=== PATIENT | female | born 1960 | race Hispanic/Latino ===

== ENCOUNTER 2020-03-21 20:37 | Inpatient (IN) | payer OTHER ==
[~2020-03-21] VITALS: Ht 157.5 cm; Wt 88.2 kg
[2020-03-21 21:53] LABS: BASOPHILS % (AUTO) 0.4 % (0.0-5.0); HEMATOCRIT 36.7 % (36-48); LYMPHOCYTES % (AUTO) 21.9 % (21.0-51.0); MEAN CORPUSCULAR HEMOGLOBIN 28.4 pg (27.0-33.0); MEAN CORPUSCULAR HGB CONC 31.3 g/dL (32.0-36.0); MEAN CORPUSCULAR VOLUME 90.6 fL (79-99); MONOCYTES % (AUTO) 5.4 % (3.0-13.0); PLATELET COUNT (AUTO) 478 K/uL (130-400); RED BLOOD CELL COUNT(AUTO) 4.05 MIL/uL (4.00-5.50); RED CELL DISTRIBUTION WIDTH 22.8 % (11.0-15.5)
[2020-03-21 21:53] LABS: APPEARANCE,URINE CLOUDY (CLEAR); BILIRUBIN,URINE LARGE (NEGATIVE); COLOR,URINE YELLOW (YELLOW); GLUCOSE, URINE (UA) 100 mg/dL (NEGATIVE); KETONES,URINE 5 mg/dL (NEGATIVE); LEUKOCYTE ESTERASE ,URINE MODERATE (NEGATIVE); NITRATE,URINE POSITIVE (NEGATIVE); OCCULT BLOOD,URINE SMALL (NEGATIVE); PROTEIN,URINE >=300 mg/dL (NEGATIVE)
[2020-03-21 22:01] LABS: BACTERIA,URINE Few /HPF (None Seen)
[2020-03-21 22:02] LABS: SQUAMOUS EPITHELIAL CELL,UR Rare /HPF (0-2); TRANSITIONAL EPI CELLS,URINE Few /HPF (None Seen)
[2020-03-21 22:06] LABS: CREATININE 2.5 mg/dL (0.5-1.5); POTASSIUM 4.5 mmol/L (3.5-5.1)
[2020-03-21 22:10] LABS: ALBUMIN 1.4 g/dL (3.5-5.0); BILIRUBIN,TOTAL 6.7 mg/dL (0.2-1.0); TOTAL PROTEIN, SERUM 7.4 g/dL (6.0-8.3)
[2020-03-21] MEDS ORDERED: ONDANSETRON HCL 4 MG/2 ML VIAL ONE (22:35)
[2020-03-21] MEDS ORDERED: MORPHINE SULFATE 4 MG/1ML SYG ONE (22:35)
[2020-03-21] MEDS ORDERED: SODIUM CHLORIDE 0.9% 50 ML IV ONE (23:13)
[2020-03-21] MEDS ORDERED: CEFTRIAXONE SODIUM 1 GM ONE (23:13)
[2020-03-22] MEDS ORDERED: GLUCAGON 1MG KIT 1 MG ML IM PRN (00:30)
[2020-03-22] MEDS ORDERED: DEXTROSE 50%-WATER 50 ML DISP.SYRIN IV PRN (00:30)
[2020-03-22] MEDS ORDERED: SODIUM CHLORIDE 0.9% 500ML 500 ML IV SCH (00:45)
[2020-03-22] MEDS ORDERED: ONDANSETRON HCL 4 MG/2 ML VIAL IV PRN (00:45)
[2020-03-22] MEDS ORDERED: NITROGLYCERIN 0.4 MG SL TAB SL PRN (00:45)
[2020-03-22 01:23] LABS: CRP QUANTITATIVE 65.5 mg/L (0.00-9.0); INR 1.45 (0.85-1.15); PARTIAL THROMBOPLASTIN TIME 29.4 SEC (26.3-35.5); PROTHROMBIN TIME 15.4 SEC (9.6-11.6)
[2020-03-22 01:25] LABS: HEMOGLOBIN A1C 5.5 % (4.0-6.0)
[2020-03-22 01:29] LABS: AMMONIA 44 umol/L (11-32); CREATINE KINASE, TOTAL 47 U/L (21-232); MYOGLOBIN 91 ng/mL (10-92); TROPONIN I < 0.04 ng/mL (0.00-0.06)
[2020-03-22] MEDS ORDERED: LACTULOSE 20 GM/30 ML UDCUP PO SCH (02:00)
[2020-03-22] MEDS ORDERED: MAGNESIUM 2GM PREMIX 50ML 50 ML IV SCH (02:00)
[2020-03-22] MEDS ORDERED: LACTULOSE 20 GM/30 ML UDCUP ONE (03:54)
[2020-03-22] MEDS ORDERED: MAGNESIUM 2GM PREMIX 50ML 50 ML IV ONE (04:07)
[2020-03-22 04:30] VITALS: BP 158/71
[2020-03-22 05:18] LABS: HEMATOCRIT 34.8 % (36-48); MEAN CORPUSCULAR HEMOGLOBIN 27.4 pg (27.0-33.0); MEAN CORPUSCULAR VOLUME 88.3 fL (79-99); PLATELET COUNT (AUTO) 486 K/uL (130-400); RED BLOOD CELL COUNT(AUTO) 3.94 MIL/uL (4.00-5.50); RED CELL DISTRIBUTION WIDTH 22.6 % (11.0-15.5)
[2020-03-22 05:29] LABS: ALBUMIN 1.4 g/dL (3.5-5.0); BILIRUBIN,TOTAL 5.9 mg/dL (0.2-1.0); CREATININE 2.3 mg/dL (0.5-1.5); MAGNESIUM 1.8 mg/dL (1.80-2.40); PHOSPHORUS 2.9 mg/dL (2.5-4.9); TOTAL PROTEIN, SERUM 6.8 g/dL (6.0-8.3)
[2020-03-22 05:40] LABS: BAND NEUTROPHILS % (MANUAL) 1 % (0-2); BASOPHILS % (MANUAL) 1 % (0-2); LYMPHOCYTES % (MANUAL) 38 % (22-44); MAN.DIFF COMMENT-IMPRESSION MANUAL DIFFERENTIAL; MONOCYTES % (MANUAL) 2 % (2-9); SEGMENTED NEUTROPHILS % 58 % (40-70)
[2020-03-22 06:14] LABS: POTASSIUM 2.8 mmol/L (3.5-5.1)
[2020-03-22] MEDS: LACTULOSE 20 GM/30 ML UDCUP PO SCH ×3 (07:15→17:03)
[2020-03-22] MEDS: INSULIN HUMULIN R 100 UNIT/ML 3ML SQ SCH ×4 (07:30→21:00)
[2020-03-22] MEDS ORDERED: DEXTROSE 5%-LACTATED RINGERS 1,000 ML IV SCH (07:30)
[2020-03-22] MEDS ORDERED: PAMIDRONATE DISODIUM 90MG VIAL 90 MG in SODIUM CHLORIDE 0.9% 1000ML 1,000 ML IV SCH (07:30)
[2020-03-22] MEDS ORDERED: POTASSIUM CHLORIDE 10MEQ/100ML 100 ML IV PRN ×2 (07:45)
[2020-03-22] MEDS ORDERED: POTASSIUM CHLORIDE 10% ELIXIR 20 MEQ/15 ML UDCUP PO PRN (07:45)
[2020-03-22] MEDS ORDERED: LIDOCAINE HCL-MPF 1% 2ML VIAL IV PRN ×2 (07:45)
[2020-03-22] MEDS ORDERED: ALBUMIN (HUMAN) 25% 200 ML IV SCH (08:15)
[2020-03-22 08:22] LABS: INR 1.41 (0.85-1.15); PARTIAL THROMBOPLASTIN TIME 32.7 SEC (26.3-35.5)
[2020-03-22 08:30] VITALS: BP 120/52
[2020-03-22] MEDS ORDERED: POTASSIUM CHLORIDE 20MEQ/100ML 100 ML IV ONE (08:58)
[2020-03-22] MEDS: FAMOTIDINE/PF 20 MG/2 ML VIAL IV SCH (09:09)
[2020-03-22] MEDS: CEFTRIAXONE SODIUM 1 GM IVP SCH ×2 (09:10→21:26)
--- NOTE | 2020-03-22 09:30 | NUR ---
RE: PARACENTESIS PATIENT SCHEDULED FOR PARACENTESIS. COVID-19 RAPID TEST NEGATIVE 03/22/20 AND PENDING COVID-19 PCR RESULTS. PROCEDURE RESCHUEDULED UNTIL RESULTS GET BACK. Amy SANCHEZ RN NOTIFIED OR PROCEDURE OUTCOME.
[2020-03-22 11:30] VITALS: BP 129/67
[2020-03-22 13:23] LABS: CREATININE,URINE RANDOM 284 mg/dL (30-135); SODIUM,URINE RANDOM 16 mmol/l (40-220)
--- NOTE | 2020-03-22 16:54 | NUR ---
SHADI NOTE/IA MET WITH PATIENT IN ROOM. PER PATIENT, LIVES WITH DAUGHTER IN LAW AND DAUGHTER IN LAWS CHILDREN, IS DANIEL INDEPENDENT WITH ADLS, HAS USE OF WHEELCHAIR, AND FEELS SAFE TO RETURN HOME ONCE DISCHARGED. Addendum: 03/22/20 at 1655 by CHADWICK CARBONE RN CM Amended: Links added.
[2020-03-22 17:19] VITALS: BP 114/61
[2020-03-22 17:36] LABS: MAGNESIUM 2.4 mg/dL (1.80-2.40); POTASSIUM 3.2 mmol/L (3.5-5.1)
[2020-03-22 19:30] VITALS: BP 133/71
[2020-03-22 23:43] VITALS: BP 143/67
[2020-03-23] MEDS: LACTULOSE 20 GM/30 ML UDCUP PO SCH ×4 (01:15→18:10)
[2020-03-23 03:23] VITALS: BP 126/59
[2020-03-23 05:32] LABS: BASOPHILS % (AUTO) 0.2 % (0.0-5.0); EOSINOPHILS % (AUTO) 1.7 % (0.0-8.0); LYMPHOCYTES % (AUTO) 19.5 % (21.0-51.0); MEAN CORPUSCULAR HEMOGLOBIN 27.9 pg (27.0-33.0); MEAN CORPUSCULAR HGB CONC 31.7 g/dL (32.0-36.0); MEAN CORPUSCULAR VOLUME 87.9 fL (79-99); MONOCYTES % (AUTO) 6.9 % (3.0-13.0); NEUTROPHILS % (AUTO) 71.2 % (40.0-77.0); PLATELET COUNT (AUTO) 455 K/uL (130-400); RED BLOOD CELL COUNT(AUTO) 3.98 MIL/uL (4.00-5.50); RED CELL DISTRIBUTION WIDTH 23.2 % (11.0-15.5); WHITE BLOOD COUNT (AUTO) 10.9 K/uL (4.8-10.8)
[2020-03-23 05:34] LABS: ALBUMIN 1.2 g/dL (3.5-5.0); BILIRUBIN,TOTAL 4.8 mg/dL (0.2-1.0); CREATININE 2.5 mg/dL (0.5-1.5); POTASSIUM 3.1 mmol/L (3.5-5.1); TOTAL PROTEIN, SERUM 6.6 g/dL (6.0-8.3)
[2020-03-23] MEDS: INSULIN HUMULIN R 100 UNIT/ML 3ML SQ SCH ×4 (05:45→19:18)
[2020-03-23] MEDS: POTASSIUM CHLORIDE 20 MEQ ERTAB PO PRN (06:13)
[2020-03-23] MEDS: FAMOTIDINE/PF 20 MG/2 ML VIAL IV SCH (07:16)
[2020-03-23] MEDS: CEFTRIAXONE SODIUM 1 GM IVP SCH ×2 (07:16→19:14)
[2020-03-23 08:00] VITALS: BP 123/66
--- NOTE | 2020-03-23 08:20 | NUR ---
ASSESSMENT PT IS AAOX3 DENIES CP DENIES SOB DENIES NV NO COMPLAINTS, RESTING IN BED. TOLERATED MEAL AND MEDS, CALL LIGHT WITHIN REACH.
[2020-03-23 12:00] VITALS: BP 143/108
[2020-03-23] MEDS: ACETAMINOPHEN-CODEINE 300/30MG TAB PO PRN ×2 (12:06→18:09)
--- NOTE | 2020-03-23 12:40 | NUR ---
DOWN TO RADIOLOGY FOR PARACENTESIS, VIA WC WITH TECH.
--- NOTE | 2020-03-23 13:00 | NUR ---
U/S GUIDED PARACENTESIS PROCEDURE PERFORMED BY DR. KUMAR. PUNCTURE SITE RIGHT LOWER QUADRANT AND PATIENT TOLERATED PROCEDURE WELL. TOTAL REMOVED 3.5 LITERS OF CLOUDY YELLOW ASCITES FLUID. END OF PROCEDURE AT 1325. SPECIMEN COLLECTED AND SENT TO LAB. CATHETER REMOVED AND DRESSING APPLIED. NO BLEEDING NOTED. REPORT GIVEN TO BILLY LYONS AND PATIENT TRANSPORTED TO 4TH FLOOR RM 430 VIA W/C. PT STABLE, AAO X 3 WITH NO C/O PAIN.
--- NOTE | 2020-03-23 14:00 | NUR ---
RETURNED TO ROOM 430 PT IS AAOX3 DENIES CP DENIES SOB DENIES NV. PER RADIOLOGY NURSE ISAAC RN, NO ALBUMIN ORDERED PER RADIOLOGY MD.
--- NOTE | 2020-03-23 15:00 | NUR ---
OK FOR PT TO HAVE FOOD FROM OUTSIDE PER DR COMBS
[2020-03-23 15:39] LABS: ALBUMIN,BODY FLUID 0.1 g/dL
[2020-03-23 16:00] VITALS: BP 127/68
[2020-03-23 16:28] LABS: APPEARANCE BODY FLUID CLEAR (CLEAR); COLOR,BODY FLUID YELLOW (LT YELLOW); SPECIMENTYPE,BODY FLUID ASCITES; TOTAL VOLUME,BODY FLUID 3500 mL
[2020-03-23 16:29] LABS: BODY FLUID WBC 73 /cu. mm.
[2020-03-23 16:32] LABS: BODY FLUID RBC 92 /cu. mm.
[2020-03-23 17:02] LABS: BF LYMPHOCYTE 39 %
[2020-03-23 20:19] VITALS: BP 147/64
[2020-03-23] MEDS: FUROSEMIDE 20 MG TABLET PO SCH (21:29)
[2020-03-23 23:54] VITALS: BP 119/60
[2020-03-24] VITALS (7 sets, daily range): BP systolic 120–154; BP diastolic 58–77
[2020-03-24] MEDS: LACTULOSE 20 GM/30 ML UDCUP PO SCH ×4 (01:03→19:15)
[2020-03-24] MEDS: ACETAMINOPHEN-CODEINE 300/30MG TAB PO PRN ×2 (03:07→16:18)
[2020-03-24] MEDS: INSULIN HUMULIN R 100 UNIT/ML 3ML SQ SCH ×4 (05:34→20:44)
[2020-03-24 05:53] LABS: BASOPHILS % (AUTO) 0.2 % (0.0-5.0); EOSINOPHILS % (AUTO) 0.4 % (0.0-8.0); LYMPHOCYTES % (AUTO) 10.7 % (21.0-51.0); MEAN CORPUSCULAR HGB CONC 31.7 g/dL (32.0-36.0); MEAN CORPUSCULAR VOLUME 88.2 fL (79-99); MONOCYTES % (AUTO) 5.5 % (3.0-13.0); NEUTROPHILS % (AUTO) 82.7 % (40.0-77.0); NUCLEATED RED BLOOD CELLS 0.1 % (0.0-0.19); PLATELET COUNT (AUTO) 461 K/uL (130-400); RED BLOOD CELL COUNT(AUTO) 3.97 MIL/uL (4.00-5.50); RED CELL DISTRIBUTION WIDTH 23.3 % (11.0-15.5)
[2020-03-24 06:09] LABS: ALBUMIN 1.2 g/dL (3.5-5.0); BILIRUBIN,TOTAL 4.9 mg/dL (0.2-1.0); CREATININE 2.1 mg/dL (0.5-1.5); POTASSIUM 3.2 mmol/L (3.5-5.1); TOTAL PROTEIN, SERUM 6.3 g/dL (6.0-8.3)
[2020-03-24] MEDS: POTASSIUM CHLORIDE 20 MEQ ERTAB PO PRN ×3 (06:16→07:43)
--- NOTE | 2020-03-24 07:20 | NUR ---
ASSESSMENT PT IS AAOX3 DENIES CP DENIES SOB DENIES NV, NO COMPLAINTS AT THIS TIME. RESTING SITTING UPRIGHT IN BED HOB UP AT 30 DEGREES. CALL LIGHT WITHIN REACH.
[2020-03-24] MEDS: CEFTRIAXONE SODIUM 1 GM IVP SCH ×2 (07:41→19:27)
[2020-03-24] MEDS: FAMOTIDINE/PF 20 MG/2 ML VIAL IV SCH (07:41)
[2020-03-24] MEDS: SPIRONOLACTONE 25 MG TAB PO SCH ×2 (07:42→19:27)
[2020-03-24] MEDS: FUROSEMIDE 20 MG TABLET PO SCH ×2 (07:42→19:27)
--- NOTE | 2020-03-24 13:00 | NUR ---
Hospice Referral SW visited pt's room, pt's son at bedside. Pt. requested that this worker speak with her dtr. Jennie Von/[phone]. Phone call to Jennie to discuss pt's condition and plan of care; Jennie requested this worker speak w/Althea Edward pts dtr in law stating she can better understand hospice. SW spoke with Althea pt's dtr in law who was able to verbalize an understanding of explanation from physicians as to condition and prognosis of pt. This worker provided education and philosophy on hospice, comfort versus curative care; dtr in law voiced an understanding. SW explained that if this option is chosen by family, SW would request [facility] from numerous agencies as pt. is non funded; dtr in law voiced an understanding. Dtr. in law stated that she would speak with her spouse and pt's other three children this evening about home hospice and requested that this worker contact her in the morning. SW will continue to follow.
[2020-03-24] MEDS: METRONIDAZOLE 500MG/100ML BAG 100 ML IVPB SCH ×2 (13:10→19:34)
--- NOTE | 2020-03-24 14:45 | NUR ---
UP TO SHOWER WITH NURSE AIDE ASSIST, TOLERATED WELL. SITTING UP IN CHAIR, SON AT BEDSIDE.
--- NOTE | 2020-03-24 15:05 | NUR ---
GLUCOSE LEVEL 57 PT IS AAOX3 NO COMPLAINTS, DRINKING SODA AND EATING A CANDY. DR COMBS ALREADY APPROVED FOR OUTSIDE FOOD.
[2020-03-25] MEDS: LACTULOSE 20 GM/30 ML UDCUP PO SCH ×3 (00:01→13:15)
[2020-03-25 04:00] VITALS: BP 126/61
[2020-03-25] MEDS: METRONIDAZOLE 500MG/100ML BAG 100 ML IVPB SCH (05:25)
[2020-03-25 05:27] LABS: BASOPHILS % (AUTO) 0.3 % (0.0-5.0); EOSINOPHILS % (AUTO) 0.7 % (0.0-8.0); LYMPHOCYTES % (AUTO) 9.1 % (21.0-51.0); MEAN CORPUSCULAR HEMOGLOBIN 27.9 pg (27.0-33.0); MEAN CORPUSCULAR HGB CONC 31.6 g/dL (32.0-36.0); MEAN CORPUSCULAR VOLUME 88.1 fL (79-99); MONOCYTES % (AUTO) 4.7 % (3.0-13.0); NEUTROPHILS % (AUTO) 84.5 % (40.0-77.0); NUCLEATED RED BLOOD CELLS 0.2 % (0.0-0.19); PLATELET COUNT (AUTO) 461 K/uL (130-400); RED CELL DISTRIBUTION WIDTH 23.1 % (11.0-15.5); WHITE BLOOD COUNT (AUTO) 19.9 K/uL (4.8-10.8)
[2020-03-25 05:59] LABS: ALBUMIN 1.1 g/dL (3.5-5.0); CREATININE 2.1 mg/dL (0.5-1.5); POTASSIUM 3.8 mmol/L (3.5-5.1); TOTAL PROTEIN, SERUM 6.4 g/dL (6.0-8.3)
[2020-03-25] MEDS: INSULIN HUMULIN R 100 UNIT/ML 3ML SQ SCH ×4 (06:04→20:45)
[2020-03-25 07:00] VITALS: BP 149/68
[2020-03-25] MEDS: CEFTRIAXONE SODIUM 1 GM IVP SCH (08:32)
[2020-03-25] MEDS: FAMOTIDINE/PF 20 MG/2 ML VIAL IV SCH (08:32)
[2020-03-25] MEDS: SPIRONOLACTONE 25 MG TAB PO SCH ×2 (08:33→20:25)
[2020-03-25] MEDS: FUROSEMIDE 20 MG TABLET PO SCH ×2 (08:33→20:24)
[2020-03-25] MEDS: ACETAMINOPHEN-CODEINE 300/30MG TAB PO PRN (08:33)
[2020-03-25] MEDS ORDERED: GLUCAGON 1MG KIT 1 MG ML IM PRN (09:00)
[2020-03-25] MEDS ORDERED: DEXTROSE 50%-WATER 50 ML DISP.SYRIN IV PRN (09:00)
--- NOTE | 2020-03-25 09:00 | NUR ---
Follow up with family/dtr in law Althea re-decision for hospice. Althea requested that this worker visit pt. after 1pm as her spouse/pt's oldest son will be at bedside to discuss hospice.
[2020-03-25 11:00] VITALS: BP 145/73
[2020-03-25] MEDS ORDERED: ZOSYN 3.375GM+NS 50ML 50 ML IV SCH (13:00)
--- NOTE | 2020-03-25 13:30 | NUR ---
Hospice Referral-SW revisited pt.; pt's oldest son Bailey at bedside. SW spoke with pt. about order for referral to hospice. Pt. able to verbalize an understanding of her condition/prognosis from conversations with MD's; son also verbalized an understanding. Pt. verbalized that she no longer wishes to return to hospital or further interventions and her wishes are to return home. Pt's son reported that family discussion has taken place and all are in agreement for pt. to go home with hospice. SW provided information and education on hospice to pt. with her son at bedside; pt. voiced an understanding and in agreement to go home with hospice. Pt. signed ZACHARY. SW explained to pt. and son as she is nonfunded, SW will seek hospice agency to accept a hernandez case; both understanding and in agreement. Referrals sent to [facility] and [facility]. Pending acceptance from a hospice agency.
--- NOTE | 2020-03-25 15:08 | NUR ---
PT WITH GLUCOSE AT 69, SON OF THE PT WENT TO BUY A COCA-COLA THAT PATIENT REQUEST. PT ASYMPTOMATIC.
[2020-03-25 16:00] VITALS: BP 127/68
--- NOTE | 2020-03-25 16:10 | NUR ---
HOSPICE=[facility] has agreed to accept pt. under their services. BILLY Bunch/Juan M stated that she would follow up with family for consents/admission, DME, etc. Juan M to contact weekend CM for notification of DME delivery tomorrow. Nato Edward approved ambulance transfer at discharge. notified Dr. Galvez and CM of acceptance. PLAN: D/c home tomorrow [facility]
[2020-03-25] MEDS ORDERED: FENTANYL 50 MCG/HR PATCH TD SCH (17:45)
[2020-03-25] MEDS ORDERED: MORPHINE SULFATE IR 15 MG TAB 15 MG TABLET PO PRN (17:45)
[2020-03-25 19:08] VITALS: BP 150/65
--- NOTE | 2020-03-25 20:36 | NUR ---
pt beside glucose 49 patient denies any symptoms snack given blood sugars periodically rechecked and additional snacks given. at 2215 blood sugar 80. will continue to monitor
[2020-03-25 23:39] VITALS: BP 150/67
[2020-03-26] MEDS: LACTULOSE 20 GM/30 ML UDCUP PO SCH ×3 (00:42→13:47)
[2020-03-26 03:42] VITALS: BP 112/61
[2020-03-26 06:08] LABS: HEMATOCRIT 35.6 % (36-48); MEAN CORPUSCULAR HEMOGLOBIN 27.6 pg (27.0-33.0); MEAN CORPUSCULAR HGB CONC 31.2 g/dL (32.0-36.0); MEAN CORPUSCULAR VOLUME 88.6 fL (79-99); NUCLEATED RED BLOOD CELLS 0.2 % (0.0-0.19); RED BLOOD CELL COUNT(AUTO) 4.02 MIL/uL (4.00-5.50); RED CELL DISTRIBUTION WIDTH 22.5 % (11.0-15.5)
[2020-03-26] MEDS: INSULIN HUMULIN R 100 UNIT/ML 3ML SQ SCH ×3 (06:14→16:17)
[2020-03-26 07:00] VITALS: BP 128/67
[2020-03-26] MEDS: FAMOTIDINE/PF 20 MG/2 ML VIAL IV SCH (08:49)
[2020-03-26] MEDS: SPIRONOLACTONE 25 MG TAB PO SCH (08:49)
[2020-03-26] MEDS: FUROSEMIDE 20 MG TABLET PO SCH (08:49)
[2020-03-26] MEDS ORDERED: LEVOFLOXACIN 500 MG TABLET PO SCH (09:00)
[2020-03-26] MEDS ORDERED: FAMOTIDINE 20MG TAB 20 MG TAB PO SCH (09:00)
[2020-03-26 11:00] VITALS: BP 114/59
--- NOTE | 2020-03-26 12:00 | NUR ---
cm note spoke to pt and is agreeable for [facility], states will let cm know when equipment delivered to home. also made aware would need to formulate OOH dnr if agreeable and in agreement.
--- NOTE | 2020-03-26 14:11 | NUR ---
HOSPICE FOLLOW UP SW spoke with Kaley Burgess for [facility]. He informed SW that hospital bed was the only thing pending for patient. SW asked about Out of Hospital DNR and he stated that he had one but it was incomplete. SW will follow up with patient and complete Out of Hospital DNR prior to discharge.
[2020-03-26 15:53] VITALS: BP 127/65
--- NOTE | 2020-03-26 16:11 | NUR ---
OUT OF HOSPITAL DNR SW assisted patient in completing Out of Hospital Do Not Resuscitate. DNR was witnessed by Email Marketer and this SW. Copy placed in chart. Original given to patient. Copy also provided for ambulance. Patient's nurse, Patel made aware. Patient is scheduled for discharged home today. Pending MD orders.
--- NOTE | 2020-03-26 18:52 | NUR ---
HOSPICE SW faxed copy of Out of Hospital DNR to [facility] at [phone]. James Avalso, Liaison for [facility] made aware.
== END 2020-03-26 17:00 | disposition hospice, home (50) | DRG 871 ==
LOC: EDH 20:37 → EDHIP 20:38 → 4AH 03-22 03:34
PROVIDERS: ADMIT Internal Medicine; ATTEND Internal Medicine
PROC: 0W9G3ZZ Drainage of Peritoneal Cavity, Percutaneous Approach (ICD-10-PCS; principal; 2020-03-23)
DX: A41.51 Sepsis due to Escherichia coli [E. coli] (principal); K76.7 Hepatorenal syndrome; C22.0 Liver cell carcinoma; N39.0 Urinary tract infection, site not specified; R18.8 Other ascites; E87.1 Hypo-osmolality and hyponatremia; N18.4 Chronic kidney disease, stage 4 (severe); N17.9 Acute kidney failure, unspecified; D68.9 Coagulation defect, unspecified; K74.60 Unspecified cirrhosis of liver; I49.3 Ventricular premature depolarization; D64.9 Anemia, unspecified; E11.22 Type 2 diabetes mellitus with diabetic chronic kidney disease; E78.5 Hyperlipidemia, unspecified; E83.42 Hypomagnesemia; E86.9 Volume depletion, unspecified; E87.6 Hypokalemia; E87.70 Fluid overload, unspecified; E88.09 Other disorders of plasma-protein metabolism, not elsewhere classified; I12.9 Hypertensive chronic kidney disease with stage 1 through stage 4 chronic kidney disease, or unspecified chronic kidney disease; R53.81 Other malaise; E83.52 Hypercalcemia; E87.8 Other disorders of electrolyte and fluid balance, not elsewhere classified; Z20.828 Contact with and (suspected) exposure to other viral communicable diseases; K72.90 Hepatic failure, unspecified without coma; R62.7 Adult failure to thrive; Z66 Do not resuscitate; Z74.01 Bed confinement status; Z68.35 Body mass index [BMI] 35.0-35.9, adult
CPT/HCPCS: 36415; 49083; 71045; 74176; 76705; 80053; 81001; 82042; 82105; 82140; 82150; 82550; 82570; 82948; 83036; 83605; 83690; 83735; 83874; 83970; 84100; 84132; 84145; 84157; 84300; 84484; 85025; 85027; 85610; 85651; 85730; 86140; 87040; 87071; 87077; 87088; 87186; 87205; 87426; 87486; 87581; 87633; 87798; 89051; 93005; G0378; J0696; J2270; J2405; J2430; J2543; J3475; J3480; J3490; J7030; P9046; U0003